=== PATIENT | male | born 1945 | race Asian ===

== ENCOUNTER → 2019-03-30 | Outpatient (CLI) | payer OTHER ==
[~2019-03-30] MED LIST: B COMPLEX1 EACH PO; FISH OIL 1,001000 M2 PO; LANTUS100 UNIT/M SUBQ; LIPITOR10 MG PO; LISINOPRIL10 MG PO; METFORMIN HCL500 MG PO; NOVOLOG100 UNIT/1 SUBQ; UNICOMPLEX M TA1 TA1 PO
--- NOTE | 2019-03-30 17:32 | EKG ---
[place] [address] [facility] [place] [address] ELECTROCARDIOGRAM REPORT Name: LORETTA BLAKE [id number]: 03/30/19 Attend Phys: Jeremias Costa MD Discharge: Date of : 47 Report #: [id number] THIS REPORT FOR: //name// [facility] Test Date: 2019-03-30 Test Time: 14:51:56 Pat Name: LORETTA BLAKE Department: Room: Gender: Systems Security Consultant: Saloni GARAY : 1945 Requested By: Jeremias Costa Order Number: [id number] MD: Thee Reinoso Measurements Intervals [place] Rate: 63 P: 6 WY: 176 QRS: 24 QRSD: 88 T: 29 QT: 382 QTc: 392 Interpretive Statements Sinus rhythm No significant abnormality No previous ECG available for comparison Electronically Signed On 03-30-2019 17:32:34 CDT by Thee Reinoso [email or web address] <ELECTRONICALLY SIGNED> By: Thee Reinoso MD, [facility] 03/30/19 1732 1451 1451 Thee Reinoso MD, FACC /EPI
== END | disposition home or self-care (01) ==
LOC: LITH 14:13
DX: N20.1 Calculus of ureter (principal); I10 Essential (primary) hypertension; E78.00 Pure hypercholesterolemia, unspecified; E11.9 Type 2 diabetes mellitus without complications; G62.9 Polyneuropathy, unspecified; G47.30 Sleep apnea, unspecified; Z98.41 Cataract extraction status, right eye; Z98.890 Other specified postprocedural states; Z79.899 Other long term (current) drug therapy; Z79.4 Long term (current) use of insulin